=== PATIENT | female | born 2000 | race Hispanic/Latino ===

== ENCOUNTER 2023-11-17 14:38 | Emergency (ER) | payer SELFPAY ==
[2023-11-17] MEDS ORDERED: Ibuprofen 800 MG TAB ONE (17:39)
== END 2023-11-17 18:45 | disposition home or self-care (01) ==
LOC: ERS 14:38
DX: M54.2 Cervicalgia (principal); V49.50XA Passenger injured in collision with unspecified motor vehicles in traffic accident, initial encounter
CPT/HCPCS: 70450; 72125

== ENCOUNTER 2025-05-13 09:40 | Outpatient (CLI) | payer OTHER | END 2025-05-13 09:41 | disposition home or self-care (01) | LOC: SCSULT 09:40 | PROVIDERS: ATTEND Family Medicine | DX: Z34.02 Encounter for supervision of normal first pregnancy, second trimester (principal); Z3A.21 21 weeks gestation of pregnancy | CPT/HCPCS: 76805 ==